=== PATIENT | female | born 1945 | race Caucasian/White ===

== ENCOUNTER 2023-04-07 11:21 | Emergency (ER) | payer OTHER ==
--- OUTSIDE RECORDS SUMMARY | 2023-04-07 11:24 | XMS REPORT | Continuity of Care Document ---
:1945 Author Organization [facility] t Address [address] [facility] [address] [place] [address] Care Team Providers Name Role Phone Jose Harris Attending Clinician Unavailable Problems Condition Condition Condition Status Onset Resolution Last Treating Co mments Source Name Details Category Date Date Treatment Clinician Date Hyperlipid Hyperlipid Diagnosis Active Common emia, emia, Spirit mixed mixed [facility] Vitamin B Vitamin B Problem Active Com mon 12 12 Spirit deficiency deficiency - [facility] Chronic Chronic Diagnosis Active Commo n obstructiv obstructiv Sp josemanuel e e - [facility] pulmonary pulmonary [facility] Hypothyroi Hypothyroi Problem Active C ommon dism dism Spirit [facility] Benign Benign Diagnosis Active Common essential essential Spir it HTN HTN - [facility] 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 Sp josemanuel of sleep of sleep [facility] CHF CHF Problem Active Common (congestiv (congestiv Sp josemanuel e heart e heart - [facility] failure) failure) [facility] Depression Depression Problem Active C ommon with with Spirit anxiety anxiety [facility] Vitamin D Vitamin D Problem Active Com mon deficiency deficiency Sp josemanuel - [facility] Insomnia Insomnia Problem Active Commo n Spirit [facility] 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 - [facility] I B without B without St delta delta [facility] agent and agent and Medi sandra without without Center coma coma Dependence Dependence Diagnosis Active Common on on Spirit continuous continuous - [facility] supplement supplement St al oxygen al oxygen [facility] Status Status Problem Active Common post post Spirit cholecyste cholecyste - [facility] ctomy ctomy [facility] H/O H/O Diagnosis Active Common medication medication Sp josemanuel noncomplia noncomplia - [facility] nce nce [facility] Hypocalcem Hypocalcem Diagnosis Active Common ia ia Spirit - [facility] Allergies, Adverse Reactions, Alerts This patient has no known allergies or adverse reactions. Medications Ordered Filled Start Stop Current Ordering Indication Dosage Frequency Signature Comments Components Source Medication Medication Date Date Medication? Clinician (SIG) Name Name Furosemide Furosemide Yes Jose 1 tablet Common Harris [facility] Diltiazem Diltiazem Yes Jose 1 capsule Common CD CD Harris [facility] Vitamin B12 Vitamin B12 Yes Jose 1 tablet Common Harris [facility] Ventolin Ventolin Yes Jose 2 puffs as Common HFA HFA Harris needed [facility] Oxygen- Oxygen- Yes Jose use every Co mmon Harris day [facility] Nexium Nexium Yes Jose 1 capsule Comm on Harris [facility] Simvastatin Simvastatin Yes Jose 1 tablet Common Harris in the [facility] Vitamin D3 Vitamin D3 Yes Jose 1 capsule Common Harris [facility] Diltiazem Diltiazem Yes Jose 1 capsule Common CD CD Harris [facility] Trazodone Trazodone Yes Jose 1 tablet Common HCl HCl Harris at bedtime [facility] as needed [facility] Bevespi Bevespi 2019- No Jose 2 puffs Com 08-06 Harris Spirit 00:00 - [facility] :00 [facility] Procedures This patient has no known procedures. Encounters Start End Encounter Admission Attending Care Care Encounter Source Date/Time Date/Time Type Type Clinicians Facility Department ID 2021-05-31 Outpatient Harris, [facility] [id number] Common 11:06:28 Jose [address] [facility] 2018-08-12 2018-08-12 [id number] Common 13:45:00 13:45:[address] [facility] [address] [facility] 2018-08-08 2018-08-08 [facility] [id number] Common 11:48:00 11:48:00 [facility] [address] [facility] 2017-11-25 2017-11-25 [facility] [id number] Common 09:05:00 09:05:[address] [facility] 2017-11-19 2017-11-19 [facility] [id number] Common 11:30:00 11:30:[address] [facility] 2017-11-04 2017-11-04 [facility] [id number] Common 10:55:00 10:55:[address] [facility] 2017-10-02 2017-10-02 [facility] [id number] Common 14:00:00 14:00:[address] [facility] Results This patient has no known results.
[2023-04-07 12:56] LABS: Protime INR 1.23
[2023-04-07 12:57] LABS: Absolute Lymphocytes (CBC) 0.5 K/uL (0.7-4.9); Hematocrit 41.4 % (36.0-45.0); Lymphocytes % 5.1 % (15.3-44.8); MPV 9.1 fL (7.6-11.3); Platelets 240 thou/uL (152-406); RBC Red Blood Cell Count 4.76 M/uL (3.86-4.86)
[2023-04-07] MEDS ORDERED: NA CHLORIDE 0.9% 1,000 ML ONE ×2 (13:09→14:14)
[2023-04-07] MEDS ORDERED: MORPHINE 2 MG/ML SYR ONE (13:09)
[2023-04-07] MEDS ORDERED: FAMOTIDINE 20 MG/2 ML VIAL IV ONE (13:09)
[2023-04-07] MEDS ORDERED: ONDANSETRON 4 MG/2 ML VIAL ONE ×2 (13:09→16:47)
[2023-04-07 13:13] LABS: Bilirubin Direct 6.6 mg/dL (0-0.2); Bilirubin Total 7.6 mg/dL (0.2-1.0); Magnesium 2.3 mg/dL (1.6-2.4); Potassium 3.6 mEq/L (3.5-5.1); Protein, Total 7.5 g/dL (6.4-8.2); Troponin High Sensitivity 5.3 pg/mL (<58.9)
[2023-04-07 13:21] LABS: Blood Morphology Comment NOT SEEN (NOT SEEN); Platelet Estimate ADEQ; White Blood Cell Scan OK (OK)
--- NOTE | 2023-04-07 14:05 | RAD REPORT ---
EXAM DESCRIPTION: CT - Abdomen Pelvis W Contrast - 04/07/2023 1:41 pm CLINICAL HISTORY: Abdominal pain COMPARISON: none. TECHNIQUE: Computed axial tomography of the abdomen pelvis was obtained. 100 cc Isovue-300 was admin istered intravenously. Oral contrast was not requested which limits evaluation of bowel and appendix All CT scans are performed using dose optimization technique as appropriate and may include automated exposure control or mA/KV adjustment according to patient size. FINDINGS: 2.6 centimeter low to intermediate density mass pancreatic head. Marked dilatation of the common bile duct. Moderate to marked dilatation intrahepatic biliary tree. 8.9 centimeter left renal cyst. Spleen, adrenals and right kidney unremarkable Diverticula stem from the colon without evidence of diverticulitis. Mild thickening wall sigmoid colo n. Normal appendix. No ascites. No adnexal mass Calcified granuloma right lung Postsurgical changes lumbar spine IMPRESSION: 2.6 centimeter pancreatic head mass probably neoplasm. It obstructs the common bile duct Mild thickening wall of the sigmoid colon probably muscular hypertrophy secondary to diverticulosis. A mass can also have this appearance and follow up is recommended
--- NOTE | 2023-04-07 14:05 | RAD REPORT ---
EXAM DESCRIPTION: Sindi Single View04/07/2023 1:11 pm CLINICAL HISTORY: Cough COMPARISON: 2013 The lungs appear clear of acute infiltrate. The heart is normal size IMPRESSION: No acute abnormalities displayed
[2023-04-07] MEDS ORDERED: MORPHINE 4 MG/ML SYR ONE ×2 (14:19→16:47)
[2023-04-07] MEDS ORDERED: Meropenem 1000 MG/VIAL IV ONE (14:40)
[2023-04-07] MEDS ORDERED: NA CHLORIDE 0.9% 100 ML ONE (14:40)
--- NOTE | 2023-04-07 14:47 | ER ---
Nurse's Notes [facility] Name: Marilyn Ashford Age: 77 yrs Sex: Female : 1945 Arrival Date: 04/07/2023 Time: 11:21 Bed 17 Private MD: Chuy Bray Diagnosis: Epigastric abdominal tenderness;Other chronic pancreatitis;Malignant neoplasm of pancreatic duct;Unspecified jaundice-COMMON BILE DUCT OBSTRUCTION, 2.6 PANCREATITIC MASS;Vomiting, unspecified Presentation: 04/07 11:40 Chief complaint: Upper abdominal pain, nausea, vomiting, fever, and headaches x 6 days. hb Hx of COPD and pancreatitis, on 3L home O2. Coronavirus screen: Client presents with at least one sign or symptom that may indicate coronavirus-19. Provider contacted for isolation considerations. Ebola Screen: No symptoms or risks identified at this time. Initial Sepsis Screen: Does the patient meet any 2 criteria? No. Patient's initial sepsis screen is negative. Does the patient have a suspected source of infection? No. Patient's initial sepsis screen is negative. Risk Assessment: Do you want to hurt yourself or someone else? Patient reports no desire to harm self or others. Onset of symptoms was April 02, 2023. 11:40 Method Of Arrival: Wheelchair hb 11:40 Acuity: JOHNSON 3 hb Historical: - Allergies: 11:42 Codeine; hb - PMHx: 11:42 COPD; Pancreatitis; hb - Immunization history:: Adult Immunizations up to date. - Social history:: Smoking status: Patient denies any tobacco usage or history of. Screenin:45 [facility] ED Fall Risk Assessment (Adult) History of falling in the last 3 months, me1 including since admission No falls in past 3 months (0 pts) Confusion or Disorientation No (0 pts) Intoxicated or Sedated No (0 pts) Impaired Gait No (0 pts) Mobility Assist Device Used No (0 pt) Altered Elimination No (0 pt) Score/Fall Risk Level 0 - 2 = Low Risk Maintained a safe environment, Provided non-skid footwear, Hourly rounding (assess needs \T\ fall precautionary measures) done. Abuse screen: Denies threats or abuse. Nutritional screening: No deficits noted. Tuberculosis screening: No symptoms or risk factors identified. Assessment: 11:45 Pain: Complains of pain in epigastric area Pain does not radiate. Pain currently is 10 me1 out of 10 on a pain scale. Quality of pain is described as sharp, Pain began 6 days ago Is continuous. Neuro: Level of Consciousness is awake, alert, obeys commands, Oriented to person, place, time, situation, Appropriate for age. Cardiovascular: Capillary refill < 3 seconds Patient's skin is warm and dry. Respiratory: Airway is patent Respiratory effort is even, unlabored, Respiratory pattern is regular, symmetrical. GI: Abd is soft and non tender X 4 quads. Reports upper abdominal pain, nausea, vomiting. 13:53 General: Appears uncomfortable, well groomed, well developed, well nourished, Behavior me1 is calm, cooperative, appropriate for age, Reports Upper abdominal pain, nausea, vomiting, fever, and headaches x 6 days. Hx of COPD and pancreatitis, on 3L home O2. 13:55 GI: Bowel sounds present X 4 quads. me1 Vital Signs: 11:40 BP 114 / 72; Pulse 120; Resp 24; Temp 97.2(TE); Pulse Ox 99% on 3 lpm NC; Weight 73.03 hb kg; Height 5 ft. 1 in. ; Pain 8/10; 12:30 BP 124 / 70; Pulse 109; Resp 17; Pulse Ox 99% on 3 lpm NC; me1 13:15 BP 154 / 96; Pulse 99; Resp 18; Pulse Ox 100% on 3 lpm NC; me1 14:00 BP 133 / 79; Pulse 100; Resp 20; Pulse Ox 99% on 3 lpm NC; me1 14:30 BP 133 / 80; Pulse 95; Resp 20; Pulse Ox 99% on 3 lpm NC; me1 15:15 BP 130 / 82; Pulse 89; Resp 18; Pulse Ox 100% on 3 lpm NC; me1 16:15 BP 137 / 93; Pulse 101; Resp 16; Pulse Ox 100% on 3 lpm NC; me1 16:15 BP 127 / 80; Pulse 100; Resp 19; Pulse Ox 100% on 3 lpm NC; me1 11:40 Body Mass Index 30.42 (73.03 kg, 154.94 cm) hb 11:40 Pain Scale: Adult hb ED Course: 11:24 Patient arrived in ED. mr 11:24 Chuy Bray MD is Private Physician. mr 11:38 Janelle Holden, JED is Primary Nurse. me1 11:39 Enio Manzo MD is Attending Physician. fanta 11:42 Triage completed. hb 11:43 Arm band placed on. hb 11:45 Patient has correct armband on for positive identification. Bed in low position. Call me1 light in reach. Side rails up X 1. Provided Education on: POC. Verbalized understanding. . 11:45 No provider procedures requiring assistance completed. me1 12:35 Basic Metabolic Panel Sent. bc6 12:35 CBC with Diff Sent. bc6 12:35 LFT's Sent. bc6 12:35 Magnesium Sent. bc6 12:35 NT PRO-BNP Sent. bc6 12:35 PT-INR Sent. bc6 12:35 Troponin HS Sent. bc6 12:35 Inserted saline lock: 22 gauge in right antecubital area, using aseptic technique. bc6 Blood collected. 13:13 XRAY Chest (1 view) In Process Unspecified. EDMS 13:42 CT Abd/Pelvis - IV Contrast Only In Process Unspecified. EDMS 15:05 EMS called they are all out on calls/ [facility] called for patient transport. eb 15:36 \T\ [address] Manzo with JJ from the [facility]/ eb \T\1428 Dr. Manzo connected with the GI net application architect for [facility]/ \T\ 1501 Dr. Manzo connected with Dr. Villanueva the hospitalist net application architect for [facility] / Administrative approval given AT 1501 by Bhavik Corral [facility]/ patient has been accepted to [address] room 1561/ report to be called to [phone]. 16:05 Urinalysis w/ reflexes Sent. me1 16:57 Patient transferred, IV remains in place. me1 Administered Medications: 13:04 Drug: Famotidine IVP 20 mg IVP once; dilute with 10 mL 0.9% NaCl; give over 2 minutes me1 Route: IVP; Site: right antecubital; 13:44 Follow up: Response: No adverse reaction me1 13:04 Drug: NS 0.9% IV 1000 ml IV at 1 bolus Per protocol; 1000 mL bolus Route: IV; Rate: 1 me1 bolus; Site: right antecubital; 16:56 Follow up: IV Status: Completed infusion; IV Intake: 1000ml me1 13:04 Drug: morphine IVP or IV 2 mg IVP once over 4 mins Route: IVP; Infused Over: 4 mins; me1 Site: right antecubital; 13:43 Follow up: Response: No adverse reaction; Pain is decreased me1 13:04 Drug: Ondansetron IVP 4 mg IVP once; over 2 minutes Route: IVP; Site: right antecubital;me1 13:43 Follow up: Response: No adverse reaction me1 14:04 Drug: NS 0.9% IV 1000 ml IV at 1 bolus Per protocol; 1000 mL bolus Route: IV; Rate: 1 me1 bolus; Site: right antecubital; 16:55 Follow up: IV Status: Completed infusion; IV Intake: 1000ml me1 14:10 Drug: morphine IVP or IV 4 mg IVP once over 4 mins Route: IVP; Infused Over: 4 mins; me1 Site: right antecubital; 14:37 Follow up: Response: No adverse reaction; Pain is decreased me1 14:11 Not Given (relief from first dose of morphine \T\13:04d): morphineor iv 2 mg IVP once me1 over 4 mins 14:36 Drug: Meropenem IV 1 grams IV at per protocol once; (mix in NS 100 mL) Route: IV; Rate: me1 per protocol; Site: right antecubital; 15:49 Follow up: IV Status: Completed infusion me1 15:49 Follow up: Response: No adverse reaction me1 16:34 Drug: morphine IVP or IV 4 mg IVP once over 4 mins Route: IVP; Infused Over: 4 mins; me1 Site: right antecubital; 16:54 Follow up: Response: No adverse reaction me1 16:34 Drug: Ondansetron IVP 4 mg IVP once; over 2 minutes Route: IVP; Site: right antecubital;me1 16:54 Follow up: Response: No adverse reaction me1 Medication: 11:45 VIS not applicable for this client. me1 Intake: 16:55 IV: 1000ml; Total: 1000ml. me1 16:56 IV: 1000ml; Total: 2000ml. me1 Outcome: 14:46 ER care complete, transfer ordered by MD. jewell 16:17 Transferred by ground EMS to [facility], [facility], Transfer form completed. me1 Note: Report given to JED Fang 16:17 Condition: stable 16:17 Instructed on the need for transfer, 16:58 Patient left the ED. me1 Signatures: Dispatcher [employer] Enio Walters MD MD cha Rivera, Sheri, Reg Reg mr Alesia Chinchilla RN RN Dulce Lewis Idalia Maharaj [facility] Janelle Holden RN RN me1 Corrections: (The following items were deleted from the chart) 11:47 11:40 Pulse 120bpm; Resp 24bpm; Pulse Ox 99% 3 lpm Nasal Cannula; 73.03 kg; Height 5 hb ft. 1 in.; BMI: 30.4; Pain 8/10, Adult; hb 13:53 11:40 Chief complaint: Upper abdominal pain, nausea, vomiting, fever, and headaches x 6 me1 days. Hx of COPD and pancreatitis, on 3L home O2. hb
--- NOTE | 2023-04-07 14:47 | EDPHYS ---
Physician Documentation [facility] Name: Marilyn Ashford Age: 77 yrs Sex: Female : 1945 Arrival Date: 04/07/2023 Time: 11:21 Bed 17 Private MD: Chuy Bray ED Physician Enio Manzo HPI: 04/07 14:06 This 77 yrs old Female presents to ER via Wheelchair with complaints of fanta Abdominal Pain, Vomiting, Urinary Problem, Dehydrated. 14:06 The patient presents to the emergency department with nausea, vomiting, abdominal pain, fanta of the epigastric area, right upper quadrant and left upper quadrant. Historical: - Allergies: 11:42 Codeine; hb - PMHx: 11:42 COPD; Pancreatitis; hb - Immunization history:: Adult Immunizations up to date. - Social history:: Smoking status: Patient denies any tobacco usage or history of. ROS: 14:23 Constitutional: Negative for fever, chills, and weight loss, Eyes: Negative for injury, fanta pain, redness, and discharge, ENT: Negative for injury, pain, and discharge, Neck: Negative for injury, pain, and swelling, Cardiovascular: Negative for chest pain, palpitations, and edema, Respiratory: Negative for shortness of breath, cough, wheezing, and pleuritic chest pain, Back: Negative for injury and pain, : Negative for injury, bleeding, discharge, and swelling, MS/Extremity: Negative for injury and deformity, Neuro: Negative for headache, weakness, numbness, tingling, and seizure, Psych: Negative for depression, anxiety, suicide ideation, homicidal ideation, and hallucinations, Allergy/Immunology: Negative for hives, rash, and allergies, Endocrine: Negative for neck swelling, polydipsia, polyuria, polyphagia, and marked weight changes, 14:23 Abdomen/GI: Positive for abdominal pain, nausea and vomiting, abdominal cramps, abdominal distension, of the epigastric area, right upper quadrant and left upper quadrant, 14:23 Skin: Positive for jaundice, Exam: 14:23 Constitutional: This is a well developed, well nourished patient who is awake, alert, fanta and in no acute distress. Head/Face: Normocephalic, atraumatic. Eyes: Pupils equal round and reactive to light, extra-ocular motions intact. Lids and lashes normal. Conjunctiva and sclera are non-icteric and not injected. Cornea within normal limits. Periorbital areas with no swelling, redness, or edema. ENT: Nares patent. No nasal discharge, no septal abnormalities noted. Tympanic membranes are normal and external auditory canals are clear. Oropharynx with no redness, swelling, or masses, exudates, or evidence of obstruction, uvula midline. Mucous membranes moist. Neck: Trachea midline, no thyromegaly or masses palpated, and no cervical lymphadenopathy. Supple, full range of motion without nuchal rigidity, or vertebral point tenderness. No Meningismus. Chest/axilla: Normal chest wall appearance and motion. Nontender with no deformity. No lesions are appreciated. Respiratory: Lungs have equal breath sounds bilaterally, clear to auscultation and percussion. No rales, rhonchi or wheezes noted. No increased work of breathing, no retractions or nasal flaring. Back: No spinal tenderness. No costovertebral tenderness. Full range of motion. Female : Normal external genitalia. MS/ Extremity: Pulses equal, no cyanosis. Neurovascular intact. Full, normal range of motion. Neuro: Awake and alert, GCS 15, oriented to person, place, time, and situation. Cranial nerves II-XII grossly intact. Motor strength 5/5 in all extremities. Sensory grossly intact. Cerebellar exam normal. Normal gait. Psych: Awake, alert, with orientation to person, place and time. Behavior, mood, and affect are within normal limits. 14:23 Cardiovascular: Rate: tachycardic, actual rate is 124 bpm, Rhythm: regular, Pulses: Pulses are 4+ in bilateral radial, brachial, femoral, popliteal, posterior tibial and and dorsalis pedis arteries.. Heart sounds: normal, normal S1and S2, no S3 or S4, no murmur, no rub, no gallop, Edema: is not appreciated, JVD: is not appreciated, 14:23 ECG was reviewed by the Attending Physician. 14:23 Abdomen/GI: Inspection: distension, that is mild, Bowel sounds: active, Palpation: moderate abdominal tenderness, in the epigastric area, right upper quadrant and left upper quadrant, Liver: no appreciated palpable abnormalities, Hernia: not appreciated, Vital Signs: 11:40 BP 114 / 72; Pulse 120; Resp 24; Temp 97.2(TE); Pulse Ox 99% on 3 lpm NC; Weight 73.03 hb kg; Height 5 ft. 1 in. ; Pain 8/10; 12:30 BP 124 / 70; Pulse 109; Resp 17; Pulse Ox 99% on 3 lpm NC; me1 13:15 BP 154 / 96; Pulse 99; Resp 18; Pulse Ox 100% on 3 lpm NC; me1 14:00 BP 133 / 79; Pulse 100; Resp 20; Pulse Ox 99% on 3 lpm NC; me1 14:30 BP 133 / 80; Pulse 95; Resp 20; Pulse Ox 99% on 3 lpm NC; me1 15:15 BP 130 / 82; Pulse 89; Resp 18; Pulse Ox 100% on 3 lpm NC; me1 16:15 BP 137 / 93; Pulse 101; Resp 16; Pulse Ox 100% on 3 lpm NC; me1 16:15 BP 127 / 80; Pulse 100; Resp 19; Pulse Ox 100% on 3 lpm NC; me1 11:40 Body Mass Index 30.42 (73.03 kg, 154.94 cm) hb 11:40 Pain Scale: Adult hb MDM: 11:39 Patient medically screened. [facility] 14:32 Differential diagnosis: Nonspecific abd pain, gastritis, pancreatitis. Data reviewed: [facility] vital signs, nurses notes, EMS record, lab test result(s), EKG, radiologic studies, CT scan, plain films. Consideration of Admission/Observation Escalation of care including admission/observation considered. I considered the following discharge prescriptions or medication management in the emergency department Medications were administered in the Emergency Department. See MAR. Test considered but Not performed: Ultrasound NO ABD USG. Care significantly affected by the following chronic conditions: Chronic Obstructive Pulmonary Disease, PANCREATITIS. Counseling: I had a detailed discussion with the patient and/or guardian regarding the historical points, exam findings, and any diagnostic results supporting the discharge/admit diagnosis, lab results, radiology results, the need to transfer to another facility, for higher level of care, [facility] does not immediately have the required specialist. 04/07 12:32 Order name: Basic Metabolic Panel; Complete Time: 13:51 [facility] 04/07 12:32 Order name: CBC with Diff; Complete Time: 13:51 [facility] 04/07 12:32 Order name: LFT's; Complete Time: 13:51 [facility] 04/07 12:32 Order name: Magnesium; Complete Time: 13:51 [facility] 04/07 12:32 Order name: NT PRO-BNP; Complete Time: 13:51 [facility] 04/07 12:32 Order name: PT-INR; Complete Time: 13:51 [facility] 04/07 12:32 Order name: Troponin HS; Complete Time: 13:51 [facility] 04/07 12:32 Order name: Lipase; Complete Time: 13:51 [facility] 04/07 12:32 Order name: Urinalysis w/ reflexes [facility] 04/07 13:21 Order name: CBC Smear Scan; Complete Time: 13:51 [facility] 04/07 12:32 Order name: XRAY Chest (1 view); Complete Time: 14:21 [facility] 04/07 12:32 Order name: CT Abd/Pelvis - IV Contrast Only; Complete Time: 14:21 [facility] 04/07 12:32 Order name: EKG; Complete Time: 12:32 [facility] 04/07 12:32 Order name: Cardiac monitoring; Complete Time: 13:05 [facility] 04/07 12:32 Order name: EKG - Nurse/Tech; Complete Time: 12:35 [facility] 04/07 12:32 Order name: IV Saline Lock; Complete Time: 12:35 [facility] 04/07 12:32 Order name: Labs collected and sent; Complete Time: 12:35 [facility] 04/07 12:32 Order name: O2 Per Protocol; Complete Time: 13:05 [facility] 04/07 12:32 Order name: O2 Sat Monitoring; Complete Time: 13:05 [facility] EC:23 Rate is 104 beats/min. Rhythm is regular. QRS [place] is Normal. MI interval is normal. [facility] QRS interval is normal. QT interval is normal. No Q waves. T waves are Normal. No ST changes noted. Clinical impression: Sinus tachycardia. Interpreted by me. Reviewed by me. Administered Medications: 13:04 Drug: Famotidine IVP 20 mg IVP once; dilute with 10 mL 0.9% NaCl; give over 2 minutes me1 Route: IVP; Site: right antecubital; 13:44 Follow up: Response: No adverse reaction me1 13:04 Drug: NS 0.9% IV 1000 ml IV at 1 bolus Per protocol; 1000 mL bolus Route: IV; Rate: 1 me1 bolus; Site: right antecubital; 16:56 Follow up: IV Status: Completed infusion; IV Intake: 1000ml me1 13:04 Drug: morphine IVP or IV 2 mg IVP once over 4 mins Route: IVP; Infused Over: 4 mins; me1 Site: right antecubital; 13:43 Follow up: Response: No adverse reaction; Pain is decreased me1 13:04 Drug: Ondansetron IVP 4 mg IVP once; over 2 minutes Route: IVP; Site: right antecubital;me1 13:43 Follow up: Response: No adverse reaction me1 14:04 Drug: NS 0.9% IV 1000 ml IV at 1 bolus Per protocol; 1000 mL bolus Route: IV; Rate: 1 me1 bolus; Site: right antecubital; 16:55 Follow up: IV Status: Completed infusion; IV Intake: 1000ml me1 14:10 Drug: morphine IVP or IV 4 mg IVP once over 4 mins Route: IVP; Infused Over: 4 mins; me1 Site: right antecubital; 14:37 Follow up: Response: No adverse reaction; Pain is decreased me1 14:11 Not Given (relief from first dose of morphine \T\13:04d): morphineor iv 2 mg IVP once me1 over 4 mins 14:36 Drug: Meropenem IV 1 grams IV at per protocol once; (mix in NS 100 mL) Route: IV; Rate: me1 per protocol; Site: right antecubital; 15:49 Follow up: IV Status: Completed infusion me1 15:49 Follow up: Response: No adverse reaction me1 16:34 Drug: morphine IVP or IV 4 mg IVP once over 4 mins Route: IVP; Infused Over: 4 mins; me1 Site: right antecubital; 16:54 Follow up: Response: No adverse reaction me1 16:34 Drug: Ondansetron IVP 4 mg IVP once; over 2 minutes Route: IVP; Site: right antecubital;me1 16:54 Follow up: Response: No adverse reaction me1 Disposition Summary: 04/07/23 14:46 Transfer Ordered Notes: Transfer Location: [facility] fanta Reason: Higher level of care fanta Condition: Fair fanta Problem: new fanta Symptoms: have improved fanta Accepting Physician: TO [facility](04/07/23 16:58) me1 Diagnosis - Epigastric abdominal tenderness fanta - Other chronic pancreatitis fanta - Malignant neoplasm of pancreatic duct fanta - Unspecified jaundice - COMMON BILE DUCT OBSTRUCTION, 2.6 PANCREATITIC MASS fanta - Vomiting, unspecified fanta Forms: - Medication Reconciliation Form fanta - SBAR form fanta Signatures: Dispatcher [employer] EDEnio David MD MD cha Baxter, Heather RN RN Janelle Holden RN RN me1 Corrections: (The following items were deleted from the chart) 14:47 14:46 TO [facility] fanta fanta 16:58 14:47 TO [facility] me1
[2023-04-07 16:28] LABS: Urine Bacteria None Seen /HPF (<20); Urine Bilirubin 2+ (Negative); Urine Blood Negative (Negative); Urine Clarity Clear (Clear); Urine Color Dark-Yellow (Yellow); Urine Glucose NEGATIVE (Negative); Urine Mucus Slight /HPF (None Seen); Urine Protein TRACE (Negative); Urine RBC <5 /HPF (None Seen); Urine Urobilinogen 2+ (Normal); Urine pH 5.5 (5.0-7.0)
[2023-04-07 16:29] LABS: Specific Gravity > 1.030 (1.005-1.030)
[2023-04-07 17:13] VITALS: TEMP 97.2
[2023-04-07 17:20] VITALS: O2SAT 100
[2023-04-07 17:22] VITALS: BP 127/80
--- NOTE | 2023-04-09 13:36 | EKG ---
Test Date: 2023-04-07 Test Time: 12:25:10 Police Pilot: SALLY MEASUREMENT RESULTS: Intervals: Rate: 104 DE: 142 QRSD: 76 QT: 352 QTc: 462 [place]: P: 81 DE: 142 QRS: -9 T: 66 INTERPRETIVE STATEMENTS: Sinus tachycardia Possible Inferior infarct, age undetermined Abnormal ECG Compared to ECG 11/29/2013 11:43:24 Sinus rhythm no longer present Left-axis deviation no longer present Myocardial infarct finding still present Electronically Signed On 04-09-23 13:28:34 TRAFFIC CHIEF by Ash Burns
== END 2023-04-07 16:58 | disposition short-term general hospital (02) ==
LOC: ER 11:21
DX: C25.3 Malignant neoplasm of pancreatic duct (principal); K86.1 Other chronic pancreatitis; K83.1 Obstruction of bile duct; R11.10 Vomiting, unspecified; R17 Unspecified jaundice; Z88.5 Allergy status to narcotic agent
CPT/HCPCS: 96365; 96361; 93005; 85025; 81001; 80048; 36415; 83735; 85610; 80076; 84484; 83690; 83880; 74177; 71045; 96375; 99285; Q9967; J2270; J2185; J2405 ×2; J7030 ×2